=== PATIENT | female | born 1995 | race Hispanic/Latino ===

== ENCOUNTER 2016-09-19 14:31 | Inpatient (IN) | payer OTHER ==
[2016-09-19] VITALS (34 sets, daily range): BP systolic 106–145; BP diastolic 56–85
[~2016-09-19] VITALS: Ht 157.5 cm; Wt 90.0 kg
[2016-09-19] MEDS ORDERED: PRENTAB9 PO (14:37)
[2016-09-19] MEDS ORDERED: AMPICILLIN SOD 2 GM in D5W MINI-BAG PLUS 100 ML IV STA (16:55)
[2016-09-19] MEDS: LR 1,000 ML IV SCH (16:55)
[2016-09-19] MEDS ORDERED: LACTATED RINGER'S 1000 ML IV STA (16:55)
[2016-09-19 18:09] LABS: MEAN CORPUSCULAR HEMOGLOBIN 28.6 pg (27.0-33.0); MEAN CORPUSCULAR VOLUME 86.6 fl (80.0-96.0); RED CELL DISTRIBUTION WIDTH 14.2 % (11.5-14.5)
[2016-09-19] MEDS ORDERED: FENTANYL 2MCG/ML ROPIVACAINE 0.2% NACL 250 ML CADD As Ordered ONE (18:22)
[2016-09-19] MEDS ORDERED: LACTATED RINGER'S 1000 ML IV PRN (19:00)
[2016-09-19] MEDS ORDERED: EPIDURAL COMMENT XX SCH (19:00)
[2016-09-19] MEDS ORDERED: REFRIGERATOR IV KEYS XX PRN (19:00)
[2016-09-19] MEDS ORDERED: EPIDURAL/PCA KEYS XX PRN (19:00)
[2016-09-19] MEDS ORDERED: NALOXONE INJ 0.4 MG/1 ML VIAL (J2310) IV PRN (19:00)
[2016-09-19] MEDS ORDERED: ONDANSETRON 4MG/2ML VIAL (J2405) IV PRN (19:00)
[2016-09-19] MEDS ORDERED: ePHEDrine SULFATE 25 MG/5 ML(5MG/ML) SYRINGE IV PRN (19:00)
[2016-09-19] MEDS ORDERED: diphenhydrAMINE INJ 50MG/ML VIAL (J1200) IV PRN (19:00)
[2016-09-19] MEDS ORDERED: FENTANYL/ROPIVACAINE/NACL CADD 250 ML EPIDURAL SCH (19:00)
[2016-09-19] MEDS ORDERED: OXYTOCIN 30 UNITS IN 0.9% NaCl 500ML IV BAG (J2590) As Ordered ONE (19:20)
[2016-09-19] MEDS ORDERED: AMPICILLIN SOD 1 GM in D5W MINI-BAG PLUS 50 ML IV SCH (21:30)
--- NOTE | 2016-09-19 21:53 | HPEPDOC ---
Obstetrical History & Physical General Date of Admission Sep 19, 2016 at 16:54 History of Present Illness Irene is a 21yo with SIUP at 40w4d by LMP presents with regular painful ctx that started in the morning. No LOF. No vb. Feels good movement. PMhx: benign course: late entry to care at 26wk, GBS positive urine Chief Complaint: Contractions, term Information Provided By: Patient Care Care: Good Care Dating Final EDC: Sep 15, 2016 Final EDC by: LMP Antepartum Course Diagnos(e)s Late entry to care at 26wk Height (inches): 62 Pre- weight (lbs.): 160 Admission Weight (lbs.): 207 Change in Weight (lbs.): 47 Past Medical History Past Obstetrical History : Past Obstetrical History: Multigravida Date of Delivery: Dec 12, 2014 Gestation: 41 Type of Delivery: Spontaneous Vaginal Del. 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 BREAST: . ABDOMEN: Gravid and non-tender to touch. FETUS: Is vertex (VTX) by sterile vaginal examination (SVE) HEART RATE: Regular rate and rhythm. LUNGS: Clear to auscultation (CTA). EXTREMITIES: trace edema of BLE Vital Signs/I&O Vital Signs Date Time Temp Pulse Resp B/P Pulse Ox O2 Delivery O2 Flow Rate FiO2 09/19/16 19:25 73 18 111/60 09/19/16 17:26 99.1 Laboratory Data 24H LABS Laboratory Tests 2 09/19/16 17:28: 09/19/16 18:27: Serology Scanned Report Hepatitis B Testing CBC/BMP Laboratory Tests 09/19/16 17:28 Red Blood Count 4.12, Mean Corpuscular Volume 86.6, Mean Corpuscular Hemoglobin 28.6, Mean Corpuscular Hemoglobin Concent 33.0, Red Cell Distribution Width 14.2 Pertinent Laboratoy Data Blood Type: O+ RBC Antibody Screen: Negative HIV: Negative Hepatitis B: Negative Hepatitis C: Unknown Rapid Plasma Reagin: Nonreactive Rubella: Immune Varicella: Unknown Chlamydia/Gonorrhea: Negative Group B Streptococcus: Positive Cystic Fibrosis: Negative Glucose Tolerance Test: 84 Anatomy Ultrasound Ultrasound Date: May 11, 2016 Placenta Location: Anterior Normal Anatomy: Yes Placenta Previa: No Steroid Therapy Steroid Therapy: No Vaginal Examination Dilation: 6 cm Effacement: 80+% Station: -2 Cervical Consistency: Soft Cervical Position: Anterior Presentation: Cephalic presentation Assessment Heart Rate (FHR): 140 Variability: Moderate Accelerations: Positive Decelerations: None Tocometer Contractions: Yes Frequency: regular, every 2-5 min. Duration: less than 90 seconds Strength: palpated as strong Assessment/Plan Assessment Irene is a 21yo with SIUP at 40w4d by LMP admitted to L&D for active labor with SCE 6/80/-2, regular painful ctx. Cat I FHRT. Cephalic by SCE. GBS pos. Vitals wnl. PMhx: benign course: late entry to care at 26wk, GBS positive urine Plan Admit and orient. [place] Mold Maker and consent. Diet: regular Group B Streptococcus (GBS) pos, ampicillin 2/1 Labs and intravenous (IV) per unit protocol. Lactated Ringers (LR): Bolus 1000 mL, then at 125 mL/hr. Anticipate normal spontaneous delivery () Dr. Anusha Kay MD [place] MD Sep 19, 2016 21:53
[2016-09-20] VITALS (9 sets, daily range): BP systolic 107–132; BP diastolic 54–74
[2016-09-20] MEDS ORDERED: OXYTOCIN DRIP 30 UNITS in APPROPRIATE DILUENT 1 EA IV SCH (00:46)
--- NOTE | 2016-09-20 00:51 | DNPDOC ---
Delivery Note Delivery Note DATE OF DELIVERY: Sep 20, 2016 at 00:17 PREDELIVERY DIAGNOSIS: 40w4d gestation and labor. POST DELIVERY DIAGNOSIS: Delivered. PROCEDURE: Spontaneous vaginal delivery NARROW GAUGE ENGINEER: Dr. Anusha Kay MD ANESTHESIA: epidural ESTIMATED BLOOD LOSS: 300 mL. FINDINGS: 8 pound 6 ounce M infant, Score 8/9 DELIVERY SUMMARY: Irene is a 21yo G2 now P2002 who was admitted to L&D for active labor. She had an uncomplicated of a viable male at 00:17 on 20 September 2016 at 40w4d. Head delivered OA, restituted MATTIE. No nuchal cord. Right anterior shoulder delivered followed by posterior shoulder and corpus. Cord clamped x2 and cut by FOB. Infant mouth/nares bulb suctioned. Spontaneous cry noted. Baby placed on mother's abdomen. Apgars 8/9, weight 3800g or 8#6oz. Cord blood obtained due to maternal blood type of O pos. With gentle downward guidance and suprapubic pressure, placenta delivered spontaneously and intact with centrally inserted cord. Fundal massage until both uterine fundus and lower uterine segment firm; fundus at U-1. Pitocin 30 units IV bolus administered. Inspection of perineum and vaginal wall revealed very small 1MLL closed with 4.0 vicryl suture with good hemostasis. Mom and in stable condition. Dr. Anusha Kay MD [place] N[place] MD Sep 20, 2016 00:51
[2016-09-20] MEDS: LR 1,000 ML IV SCH ×3 (00:55→16:33)
[2016-09-20] MEDS ORDERED: IBUPROFEN 800 MG TAB PO PRN (01:00)
[2016-09-20] MEDS ORDERED: miSOPROStol 200 MCG TAB (S0191) PR ONE (01:00)
[2016-09-20] MEDS ORDERED: MEASLES,MUMPS,RUBELLA VACCINE INJ (MMR-II) (90707) SC SCH (01:00)
[2016-09-20] MEDS ORDERED: RHOGAM 300 MCG (1500 IU) INJ (J2790) IM SCH (01:00)
[2016-09-20] MEDS ORDERED: DOCUSATE SODIUM 100 MG CAP PO PRN (01:00)
[2016-09-20] MEDS ORDERED: DIBUCAINE 1% OINTMENT 30GM TOP PRN (01:00)
[2016-09-20] MEDS ORDERED: ACETAMINOPHEN 500 MG TAB PO PRN (01:00)
[2016-09-20] MEDS: PRENATAL VITAMIN TAB PO SCH (08:36)
--- NOTE | 2016-09-21 02:12 | IPN ---
DATE: 09/20/2016 Patient has requested circumcision of their male after discussing risks and benefits of circumcision, the penile block and aftercare, expressed understanding of the penile block and aftercare, answered all questions, who signed and witnessed the consent form. We await the clearance by the service line bus cleaner.
[2016-09-21 06:07] VITALS: BP 118/57
[2016-09-21] MEDS: PRENATAL VITAMIN TAB PO SCH (08:33)
--- NOTE | 2016-09-21 12:28 | IPNPDOC ---
Text Note Date of Service The patient was seen on 09/21/16. NOTE PPD # 1 S: Irene is a 21yo doing well on PPD 1 s/p uncomplicated at 40w4d on 09/20 at 0017. She has no complaints, doing well, no problems voiding, ambulating and she is tolerating regular diet. Breast feeding without problem. O; Vitals wnl, afebrile General: WDWN, resting comfortably Cardiac: S1S2 present, no murmur Lungs CTAB Abdomen; soft , nontender, FF at u-1cm Ext: nontender A: Irene is a 21yo doing well on PPD 1 s/p uncomplicated at 40w4d on 09/20 at 0017. Hemodynamically stable, no e/o infection. Vitals wnl, exam benign. Meeting all milestones. P: Discharge to home today vs boarding if needs to stay Has home meds: motrin, lanolin, minipill Routine [address] appointment [address] Anusha Kay MD [place] NIRANJAN VS,Renae, I+O VS, Dorise, I+O Vital Signs Date Time Temp Pulse Resp B/P Pulse Ox O2 Delivery O2 Flow Rate FiO2 09/21/16 06:07 98.1 70 18 118/57 09/20/16 17:59 98 Room Air I&O- Last 24 Hours up to 6 AM 09/21/16 05:59 Intake Total 960 ml Balance 960 ml ANUSHA KAY MD Sep 21, 2016 12:28
[2016-09-21] MEDS ORDERED: IBUP-1114 PO (12:42)
== END 2016-09-21 13:35 | disposition home or self-care (01) | DRG 775 ==
LOC: M LDO 14:31 → M LDI 16:54 → M OBS 09-20 02:32
PROVIDERS: ADMIT Obstetrics & Gynecology; ATTEND Obstetrics & Gynecology
PROC: 10E0XZZ Delivery of Products of Conception, External Approach (ICD-10-PCS; principal; 2016-09-20)
PROC: 0HQ9XZZ Repair Perineum Skin, External Approach (ICD-10-PCS; 2016-09-20)
DX: O48.0 Post-term pregnancy (principal); Z37.0 Single live birth; Z3A.40 40 weeks gestation of pregnancy; O99.820 Streptococcus B carrier state complicating pregnancy; O70.0 First degree perineal laceration during delivery

== ENCOUNTER 2017-11-21 16:42 | Emergency (ER) | payer OTHER | END 2017-11-21 17:16 | disposition left against medical advice (07) | LOC: M ED 16:42 | DX: Z53.29 Procedure and treatment not carried out because of patient's decision for other reasons (principal) ==

== ENCOUNTER 2017-12-18 06:16 | Emergency (ER) | payer OTHER ==
[2017-12-18 07:29] LABS: BASO % 0.1 % (0.0-1.0); EOS # 0.2 10^3/uL (0.0-0.50); EOS % 1.7 % (0.0-3.0); HEMATOCRIT 40.5 % (36.0-47.0); HEMOGLOBIN 13.6 g/dl (12.0-15.5); IMMATURE GRANULOCYTE % 0.4 % (0-3.0); LYMPH % 14.5 % (24.0-44.0); MEAN CORPUSCULAR HEMOGLOBIN 29.6 pg (27.0-33.0); MEAN CORPUSCULAR HGB CONC 33.6 g/dl (32.0-36.5); MONO # 0.9 10^3/uL (0.0-0.8); MONO % 6.3 % (0.0-5.0); NEUTROPHILS # 10.6 10^3/uL (1.8-7.7); PLATELET COUNT, AUTOMATED 255 10^3/uL (150-450); WHITE BLOOD COUNT 13.8 10^3/uL (4.0-10.0)
[2017-12-18] MEDS: KETOROLAC 30 MG/ML VIAL (J1885) IV (07:33)
[2017-12-18] MEDS: NS 500 ML IV (07:33)
[2017-12-18] MEDS: ONDANSETRON 4MG/2ML VIAL (J2405) IV (07:33)
[2017-12-18 07:37] LABS: APPEARANCE, URINE CLEAR (CLEAR); BACTERIA, URINE AUTO NEGATIVE (NEGATIVE); BILIRUBIN, URINE AUTO NEGATIVE (NEGATIVE); BLOOD, URINE BLOOD 2+ (NEGATIVE); COLOR, URINE YELLOW (YELLOW); GLUCOSE, URINE (UA) AUTO NEGATIVE (NEGATIVE); KETONE, URINE AUTO NEGATIVE (NEGATIVE); LEUKOCYTE ESTERASE, URINE AUTO TRACE (NEGATIVE); MUCUS, URINE SMALL (NEGATIVE); NITRITE, URINE AUTO NEGATIVE (NEGATIVE); PROTEIN, URINE AUTO NEGATIVE (NEGATIVE); RBC, URINE AUTO 21 /HPF (0-3); SPECIFIC GRAVITY URINE AUTO 1.026 (1.002-1.035); SQUAMOUS EPITHELIAL CELL UR AU 2 /HPF (0-6); UROBILINOGEN, URINE AUTO 0.2 mg/dL (0.0-2.0); WBC, URINE AUTO 2 /HPF (0-3)
[2017-12-18] MEDS: GASTROGRAFIN SOLUTION 30ML PO ×2 (07:43→08:09)
[2017-12-18 08:49] LABS: ALBUMIN 3.6 GM/DL (3.2-5.2); ALBUMIN/GLOBULIN RATIO 0.84 (1.00-1.93); ALKALINE PHOSPHATASE 108 U/L (45-117); ALT/SGPT 48 U/L (12-78); AMYLASE 87 U/L (25-115); ANION GAP 5 MEQ/L (8-16); AST/SGOT 27 U/L (7-37); BILIRUBIN,DIRECT 0.2 MG/DL (0.0-0.2); BILIRUBIN,TOTAL 0.6 MG/DL (0.2-1.0); BLOOD UREA NITROGEN 13 MG/DL (7-18); C REACTIVE PROTEIN QUANTITATIV 0.39 MG/DL (0.00-0.30); CALCIUM LEVEL 8.5 MG/DL (8.5-10.1); CARBON DIOXIDE LEVEL 28 MEQ/L (21-32); CHLORIDE LEVEL 109 MEQ/L (98-107); CREATININE FOR GFR 0.68 MG/DL (0.55-1.30); GLOMERULAR FILTRATION RATE > 60.0 (>60); GLUCOSE, FASTING 104 MG/DL (70-100); LIPASE 163 U/L (73-393); POTASSIUM SERUM 3.8 MEQ/L (3.5-5.1); SODIUM LEVEL 142 MEQ/L (136-145); TOTAL PROTEIN 7.9 GM/DL (6.4-8.2)
[2017-12-18] MEDS ORDERED: ISOVUE-370 76% 100ML VIAL (Q9967) As Ordered (08:51)
== END 2017-12-18 10:10 | disposition home or self-care (01) ==
LOC: M ED 06:16
DX: R10.12 Left upper quadrant pain (principal); R11.2 Nausea with vomiting, unspecified; R19.7 Diarrhea, unspecified
CPT/HCPCS: Q9963